=== PATIENT | female | born 1990 | race Caucasian/White ===

== ENCOUNTER → 2019-06-11 | Outpatient (CLI) | payer OTHER ==
[2019-06-11 17:13] LABS: Rheumatoid Factor 7 IU/mL (0-15)
[2019-06-11 17:23] LABS: Vitamin D 25 Hydroxy 15.8 ng/mL (30.0-100.0)
[2019-06-11 17:33] LABS: African American GFR (CKD) 115.5 (60.0-200.0); Albumin 4.8 g/dL (3.80-4.90); Albumin/Globulin Ratio 2.18 (1.60-3.17); Anion Gap 10.6 mmol/L (4.00-12.00); Calcium 9.6 mg/dL (8.7-10.3); Carbon Dioxide 24.4 mmol/L (21.6-31.8); Chol/HDL Ratio 2.58; Globulin 2.2 g/dL (1.6-3.3); LDL Cholesterol,Calculated 99.8 mg/dL (0.0-131.0); Non-African American GFR(CKD) 99.6 (60.0-200.0); Potassium 4.2 mmol/L (3.5-5.5); Total Bilirubin 0.6 mg/dL (0.2-1.2); VLDL Calculation 17.2 mg/dL (5.00-40.00)
[2019-06-11 18:54] LABS: Anti-Smith Ab Interp NEGATIVE (NEGATIVE)
[2019-06-11 18:55] LABS: DNA Double-Stranded NEGATIVE (NEGATIVE)
[2019-06-12 14:15] LABS: Complement C3 85.6 mg/dL (80.0-207.0)
== END | disposition home or self-care (01) ==
LOC: LABWHC1 10:26
PROVIDERS: ATTEND Nurse Practitioner Adult Health
DX: O03.9 Complete or unspecified spontaneous abortion without complication (principal); F41.9 Anxiety disorder, unspecified; R76.8 Other specified abnormal immunological findings in serum; R53.83 Other fatigue
CPT/HCPCS: 36415; 80053; 80061; 82306; 82542; 82550; 82672; 84144; 86038; 86160; 86225; 86235; 86431

== ENCOUNTER → 2019-10-27 | Outpatient (CLI) | payer OTHER | END | disposition home or self-care (01) | LOC: LABWHC1 10:30 | PROVIDERS: ATTEND Nurse Practitioner Adult Health | DX: O03.9 Complete or unspecified spontaneous abortion without complication (principal) | CPT/HCPCS: 36415; 84702 ==

== ENCOUNTER → 2019-10-29 | Outpatient (CLI) | payer OTHER ==
--- NOTE | 2019-10-29 15:39 | US ---
EXAMINATION TYPE: Transabdominal DATE OF EXAM: 10/29/2019 3:17 PM COMPARISON: NONE CLINICAL HISTORY: Z32.01 Encounter for test, result positi. Pt states confirm dates, has no other complaints at this time EXAM PERFORMED: Transvaginal (TV) and Transabdominal (TA) EXAM MEASUREMENTS: GESTATIONAL AGE / DATING Physician Established: (6 weeks/0 days) EDC: 06/23/2020 Dates by LMP: (6 weeks/0 days) EDC: 06/23/2020 Dates by First Scan: No prior Dates by Current Scan for: (6 weeks/0 days) EDC: 06/23/2020 MATERNAL ANATOMY Uterus: 7.5 x 4.5 x 5.5 cm Right Ovary: 4.4 x 2.2 x 4.2 Left Ovary: 2.9 x 1.8 x 2.6 Post CDS / Adnexa: wnl Presence of free fluid: No Presence of corpus luteal cyst: Right Ovary= 2.2 x 2.0 x 1.9 cm Presence of subchorionic bleed: No GESTATION / SURVEY CRL: 0.3 cm (5 weeks/6 days) MSD: 1.7 cm (6 weeks/0 days) Yolk Sac (normal less than 6mm): 2mm Heart Rate: 110 bpm IUP: Live IUP Date of LMP: 09/17/2020 IMPRESSION: Single live intrauterine with a sonographic age of 6 weeks and 0 days and estim ated date of delivery of 06/23/2020, concordant with menstrual age.
== END | disposition home or self-care (01) ==
LOC: RADUSWWP 14:56
PROVIDERS: ATTEND Nurse Practitioner Adult Health
DX: Z32.01 Encounter for pregnancy test, result positive (principal); Z3A.01 Less than 8 weeks gestation of pregnancy; Z88.8 Allergy status to other drugs, medicaments and biological substances
CPT/HCPCS: 76801; 76817

== ENCOUNTER 2020-03-14 14:37 | Observation (INO) | payer OTHER ==
[2020-03-14] MEDS ORDERED: LACTATED RINGERS 1,000 ML IV SCH (15:00)
[2020-03-14 15:16] LABS: Basophils % (A) 0 %; Eosinophils # (A) 0.1 k/uL (0-0.7); Eosinophils % (A) 1 %; HGB 12.5 gm/dL (11.4-16.0); Lymphocytes # (A) 1.4 k/uL (1.0-4.8); Lymphocytes % (A) 9 %; MCH 30.6 pg (25.0-35.0); MCHC 34.8 g/dL (31.0-37.0); MCV 88.1 fL (80.0-100.0); Mean Platelet Volume 8.3; Monocytes # (A) 0.9 k/uL (0-1.0); Monocytes % (A) 6 %; Neutrophils # (A) 12.2 k/uL (1.3-7.7); Neutrophils % (A) 82 %; Platelet Count 208 k/uL (150-450); RBC 4.09 m/uL (3.80-5.40); RDW 12.9 % (11.5-15.5); WBC 14.9 k/uL (3.8-10.6)
--- NOTE | 2020-03-14 15:29 | P.HPOB ---
History of Present Illness H&P Date: 03/14/20 Chief Complaint: 25-6/7 weeks, presumed right pyelonephritis The patient is a 29-year-old 5 para 0040 admitted at 25-4/7 weeks as established by good dating parameters. She is admitted with presumptive right pyelonephritis. She presented to the office yesterday at which time she complained of right flank pain which was at least moderate in nature. She denied any history of fever but generally did not feel well. Urinalysis was consistent with urinary tract infection. Temperature was normal in the office. CBC was drawn but did not reported until today at which time it was found to be 16.2. As she continued to have significant and perhaps worsening symptoms, she was admitted to the hospital directly for presumptive right pyelonephritis for IV antibiotic therapy. Her has otherwise been uncomplicated though she is a transfer of care having first seen me in the office at 24 weeks of gestation. Obstetrical history: 5 para 0040 with 3 early miscarriages not requiring D&C and one early elective interruption of . Current statistics are listed in history present illness. EDC of 06/23/2020 was established by ultrasound at her previous practice. labs are not currently available on the chart. CBC done here demonstrates a white blood cell count of just above 14.0. Gynecologic history: Unremarkable with no history of any infections to include STDs. Review of Systems Review of systems is confined to history of present illness. Past Medical History Smoking Status: Never smoker Medications and Allergies Home Medications Medication Instructions Recorded Confirmed Type Cholecalciferol (Vitamin D3) 50 mcg PO HS 03/14/20 03/14/20 History [Vitamin D3] Pnv No.95/Ferrous Fum/Folic AC 1 each PO HS 03/14/20 03/14/20 History [ Multivitamin Tablet] Allergies Allergy/AdvReac Type Severity Reaction Status Date / Time escitalopram [From Lexapro] Allergy Rapid Verified 03/14/20 14:48 Heart Rate sertraline [From Zoloft] Allergy Rapid Verified 03/14/20 14:48 Heart Rate Exam Vital Signs Temp Pulse Resp BP Pulse Ox 03/14/20 14:46 98.8 F 95 16 135/83 96 Intake and Output 03/14/20 03/14/20 03/14/20 06:59 14:59 22:59 Other: Weight 75.75 kg In general, this is a well-developed, well-nourished white female in no acute distress. Her heart has a regular rhythm and rate without murmur. Her lungs are clear to auscultation bilaterally in all paz. Her abdomen is gravid, fundal height appropriate for gestational age, nondistended, is soft, nontender, and without any palpable masses aside from the uterine fundus. She does demonstrate moderate to reasonably significant right flank pain. Her extremities are without any cyanosis, clubbing, or edema and are nontender to palpation bilaterally. Digital cervical examination is deferred. Results Result Diagrams: 03/14/20 15:00 Abnormal Lab Results - Last 24 Hours (Table) 03/14/20 Range/Units 15:00 WBC 14.9 H (3.8-10.6) k/uL Neutrophils # 12.2 H (1.3-7.7) k/uL Assessment and Plan (1) Pyelonephritis affecting Current Visit: Yes Status: Acute Code(s): O23.00 - INFECTIONS OF KIDNEY IN , UNSPECIFIED TRIMESTER SNOMED Code(s): 63114170 (2) 25 to 26 weeks gestation of Current Visit: Yes Status: Acute Code(s): SPT8320 - SNOMED Code(s): 744981940 Plan: The patient has been admitted for intravenous antibiotics. Rocephin 1 g intravenously every 12 hours will be given until significant clinical improvement and 24-48 hours of remaining afebrile. She otherwise will have regular diet as well as activity as tolerated. I have encouraged her to get up and walk on a regular basis. Heart tones will be rechecked with a Doppler with each shift. CBC will be repeated in the morning. IV fluids will be continued at to keep open. She understands the plan as it has been outlined and is in agreement. Urine culture was initiated in the office yesterday at the time of her office appointment. Once clinical improvement occurs, she will likely be discharged home on continued antibiotics for 7 days thereafter. The clinical picture is not that of nephrolithiasis at this time.
[2020-03-15 07:45] VITALS: BP 119/64; PULSE 89; RESP 17; TEMP 98.1
[2020-03-15 07:58] LABS: Basophils # (A) 0.1 k/uL (0-0.2); Basophils % (A) 0 %; Eosinophils # (A) 0.1 k/uL (0-0.7); Eosinophils % (A) 1 %; HCT 35.7 % (34.0-46.0); HGB 12.2 gm/dL (11.4-16.0); Lymphocytes # (A) 1.7 k/uL (1.0-4.8); Lymphocytes % (A) 13 %; MCH 30.7 pg (25.0-35.0); MCHC 34.3 g/dL (31.0-37.0); MCV 89.5 fL (80.0-100.0); Mean Platelet Volume 8.4; Monocytes # (A) 0.8 k/uL (0-1.0); Monocytes % (A) 6 %; Neutrophils # (A) 10.1 k/uL (1.3-7.7); Neutrophils % (A) 77 %; Platelet Count 170 k/uL (150-450); RBC 3.99 m/uL (3.80-5.40); RDW 13.1 % (11.5-15.5)
[2020-03-15] MEDS ORDERED: PRENATAL VIT-IRON-FOLIC ACID 1 EACH CAP PO SCH (09:00)
--- NOTE | 2020-03-15 09:00 | P.DS ---
Providers Date of admission: 03/14/20 14:37 Expected date of discharge: 03/15/20 Attending physician: Betito Farias Primary care physician: Stated None - Discharge Diagnosis(es) (1) Pyelonephritis affecting Current Visit: Yes Status: Acute (2) 25 to 26 weeks gestation of Current Visit: Yes Status: Acute Hospital Course: The patient is a 29-year-old 5 para 0040 admitted at 25+ weeks by good dating parameters. She is admitted with presumptive right pyelonephritis with significant right flank pain and an elevated white count as well as a very conspicuous urinalysis. Urine cultures pending at this time. She has been afebrile of both prior to admission and during her admission. Initial white count drawn in the office was 16.2 and has now decreased reasonably into the area of approximately 13. She has had significant clinical improvement over last 24 hours with Rocephin 1 g every 12 hours given intravenously. She is otherwise tolerating all activities of daily living. Her examination demonstrates almost no flank tenderness at this time whereas yesterday she had significant flank tenderness. She was deemed stable for discharge on hospital day #2 was discharged home to follow-up in the office in 1-2 weeks as previously scheduled. Discharge instructions included calling for any significantly increased fever, pain, fever, or anything also concerned her. status is been stable throughout. Discharge medications included only maej-fzp-[id number] analgesic pain medications as well as continued vitamins as she is . She additionally was provided with a prescription for Macrobid, 1 by mouth twice a day 7 days, #14 dispensed. Procedures: #1. IV antibiotics Patient Condition at Discharge: Stable Plan - Discharge Summary Discharge Rx Participant: No New Discharge Prescriptions: No Action Pnv No.95/Ferrous Fum/Folic AC [ Multivitamin Tablet] 1 each PO HS Cholecalciferol (Vitamin D3) [Vitamin D3] 50 mcg PO HS Discharge Medication List Cholecalciferol (Vitamin D3) [Vitamin D3] 50 mcg PO HS 03/14/20 [History] Pnv No.95/Ferrous Fum/Folic AC [ Multivitamin Tablet] 1 each PO HS 03/14/20 [History] Follow up Appointment(s)/Referral(s): Betito Farias MD [STAFF PHYSICIAN] - 2 Weeks Discharge Disposition: HOME SELF-CARE
== END 2020-03-15 15:53 | disposition home or self-care (01) ==
LOC: 4FBP 14:37
PROVIDERS: ADMIT Obstetrics & Gynecology; ATTEND Obstetrics & Gynecology
DX: O23.02 Infections of kidney in pregnancy, second trimester (principal); Z3A.25 25 weeks gestation of pregnancy; Z88.8 Allergy status to other drugs, medicaments and biological substances
CPT/HCPCS: 96365; 96366; 85025 ×2; G0378 ×2; G0379; J0696 ×2; S0197

== ENCOUNTER 2020-06-09 09:54 | Outpatient (CLI) | payer OTHER ==
[2020-06-09 10:34] VITALS: RESP 16; TEMP 97.2
[2020-06-09 10:59] LABS: Basophils # (A) 0.1 k/uL (0-0.2); Basophils % (A) 1 %; Eosinophils # (A) 0.1 k/uL (0-0.7); Eosinophils % (A) 1 %; HCT 37.9 % (34.0-46.0); HGB 12.8 gm/dL (11.4-16.0); Lymphocytes # (A) 1.7 k/uL (1.0-4.8); Lymphocytes % (A) 18 %; MCH 29.7 pg (25.0-35.0); MCHC 33.7 g/dL (31.0-37.0); Mean Platelet Volume 9.3; Monocytes # (A) 0.5 k/uL (0-1.0); Monocytes % (A) 6 %; Neutrophils # (A) 7.2 k/uL (1.3-7.7); Neutrophils % (A) 73 %; Platelet Count 166 k/uL (150-450); RBC 4.31 m/uL (3.80-5.40); RDW 13.6 % (11.5-15.5); WBC 9.8 k/uL (3.8-10.6)
[2020-06-09 11:03] LABS: ALT 23 U/L (4-34); AST 30 U/L (14-36); African American GFR (CKD) >90 (>60 ml/min/1.73 sqM); Blood Urea Nitrogen 10 mg/dL (7-17); LDH 411 U/L (313-618); Non-African American GFR(CKD) >90 (>60 ml/min/1.73 sqM); Uric Acid 5.3 mg/dL (3.7-7.4)
[2020-06-09 11:04] LABS: Appearance,Urine Clear (Clear); Bacteria,Urine Occasional /hpf; Bilirubin,Urine Negative (Negative); Blood,Urine Negative (Negative); Color,Urine Light Yellow; Glucose,Urine (UA) Negative (Negative); Ketones,Urine Negative (Negative); Leukocyte Esterase,Urine Large (Negative); Nitrite,Urine Negative (Negative); PH, Urine 6.5 (5.0-8.0); Protein,Urine Negative (Negative); RBC,Urine 1 /hpf (0-5); Specific Gravity,Urine 1.008 (1.001-1.035); Squamous Epithelial Cell,Urine 1 /hpf (0-4); Urobilinogen,Urine <2.0 mg/dL (<2.0); WBC,Urine 113 /hpf (0-5)
[2020-06-09 11:05] LABS: Protein/Creatinine Ratio,Urine 0.25
[2020-06-09 11:56] VITALS: BP 124/74; PULSE 87
--- NOTE | 2020-06-15 19:17 | P.MSEPDOC ---
Presenting Problems - Arrival Data Date of Arrival on Unit: 06/09/20 Time of Arrival on Unit: 09:54 Mode of Transport: Ambulatory - Complaint OB-Reason for Admission/Chief Complaint: Other Comment: pt here with c/o bloody nose an hour ago that lasted 20 minutes, pt states she. has had elevated blood pressures for the last 2 weeks, pt denies blurred. vision/epigastric pain, reports headache that she has had on and off for last 2 weeks. that has not increased in pain, pt reports + fm, denies lof/vb, reflexes +2 Medical History - Information : 5 Para: 0 Term: 0 : 0 Abortions: Spontaneous or Elective: 4 Number of Living Children: 0 - Gestational Age Gestational Age by NATHALY (wks/days): 38 Weeks and 0 Days - History Complications: Other Comment: pt reports elevated blood pressures in last few weeks of Review of Systems - Review of Systems Constitutional: No problems Breast: No problems ENT: No problems Cardiovascular: No problems Respiratory: No problems Gastrointestinal: No problems Genitourinary: No problems Musculoskeletal: No problems Neurological: No problems Skin: No problems Vital Signs - Temperature Temperature: 97.2 F Temperature Source: Temporal Artery Scan - Pulse Right Brachial Pulse Rate: 87 Pulse Assessment Method: Automatic Cuff - Respirations Respiratory Rate: 16 Oxygen Delivery Method: Room Air - Blood Pressure Right Arm Blood Pressure: 124/74 Blood Pressure Mean: 90 Blood Pressure Source: Automatic Cuff Medical Screen Scoring (Pre) - Cervical Exam Dilation: Exam Deferred Effacement: Exam Deferred Membranes: Intact - Uterine Contractions Frequency: N/A Duration: N/A Intensity: N/A - Maternal Vital Signs Maternal Temperature: N/A Maternal Blood Pressure: N/A Signs of Preeclampsia: N/A Maternal Respirations: N/A - Maternal Trauma Maternal Trauma: N/A - Assessment - Baby A Baseline FHR: 145 - Total Score - Baby A Total Score - Baby A: 0 - Total Score - Baby B Total Score - Baby B: 0 - Total Score - Baby C Total Score - Baby C: 0 - Level of Risk - Baby A Level of Risk - Baby A: Low (0-5) - Level of Risk - Baby B Level of Risk - Baby B: Low (0-5) - Level of Risk - Baby C Level of Risk - Baby C: Low (0-5) Physician Notification (Pre) - Physician Notified Spoke With: marine. New Order Received: Yes - Notification Comment Comment: disch home. to samira wang appt. parker wahl s/sx with pt. Medical Screen Scoring (Post) - Cervical Exam Dilation: Exam Deferred - Uterine Contractions Frequency: N/A Duration: N/A Intensity: N/A - Maternal Vital Signs Maternal Temperature: N/A Maternal Blood Pressure: N/A Signs of Preeclampsia: N/A Maternal Respirations: N/A - Pain Assessment Pain Intensity: 0 - Maternal Trauma Maternal Trauma: N/A - Assessment - Baby A Heart Rate: 145 Heart Rate - NICHD Category: Category I (Normal) = 0 NST: Reactive Position: N/A Station: N/A - Total Score Total Score - Baby A: 0 Total Score - Baby B: 0 Total Score - Baby C: 0 - Post Treatment Level of Risk Post Treatment Level of Risk - Baby A: Low (0-5) Post Treatment Level of Risk - Baby B: Low (0-5) Post Treatment Level of Risk - Baby C: Low (0-5) Physician Notification (Post) - Physician Notified Physician Notified Date: 06/09/20 Physician Notified Time: 11:05 Spoke With: marine New Order Received: Yes - Notification Comment Comment: disch home Disposition - Disposition OB Disposition: Discharge to home Discharge Date: 06/09/20 Discharge Time: 11:10 I agree with the RN Medical Screening Exam: Yes Risk & Benefit of care provided described in d/c instruction: Yes Diagnosis: RELATED CONDITIONS, UNSPECIFIED, THIRD TRIMESTER
== END 2020-06-09 11:10 | disposition home or self-care (01) ==
LOC: FBPOP 09:54
PROVIDERS: ATTEND Obstetrics & Gynecology
DX: O26.93 Pregnancy related conditions, unspecified, third trimester (principal); Z3A.38 38 weeks gestation of pregnancy
CPT/HCPCS: 59025; 81001; 82565; 82570; 83615; 84156; 84450; 84460; 84520; 84550; 85025; 99215

== ENCOUNTER 2020-06-10 22:20 | Inpatient (IN) | payer OTHER ==
[2020-06-10] MEDS ORDERED: METHYLERGONOVINE 0.2 MG/ML 1 ML AMP IM PRN (23:01)
[2020-06-10] MEDS ORDERED: TERBUTALINE 1 MG/ML VIAL SQ PRN (23:01)
[2020-06-10] MEDS ORDERED: CARBOPROST TROMETHAMINE 250 MCG/ML 1 ML AMP IM PRN (23:01)
[2020-06-10] MEDS ORDERED: OXYTOCIN 10 UNIT/ML 1 ML VIAL IM PRN (23:01)
[2020-06-10] MEDS ORDERED: LIDOCAINE 0.5% (PF) 5 MG/ML (50 ML SDV) SQ PRN (23:01)
[2020-06-10 23:21] LABS: Basophils % (A) 0 %; Eosinophils # (A) 0.3 k/uL (0-0.7); Eosinophils % (A) 2 %; HCT 38.3 % (34.0-46.0); HGB 12.7 gm/dL (11.4-16.0); Lymphocytes # (A) 2.9 k/uL (1.0-4.8); Lymphocytes % (A) 21 %; MCH 29.1 pg (25.0-35.0); MCHC 33.1 g/dL (31.0-37.0); Mean Platelet Volume 9.7; Monocytes # (A) 0.7 k/uL (0-1.0); Monocytes % (A) 6 %; Neutrophils # (A) 9.4 k/uL (1.3-7.7); Neutrophils % (A) 70 %; Platelet Count 166 k/uL (150-450); RBC 4.36 m/uL (3.80-5.40); RDW 13.7 % (11.5-15.5); WBC 13.5 k/uL (3.8-10.6)
[2020-06-10 23:28] LABS: Uric Acid 4.4 mg/dL (3.7-7.4)
[2020-06-11 00:38] VITALS: RESP 16
[2020-06-11] MEDS: LACTATED RINGERS 1,000 ML IV SCH ×5 (00:56→22:13)
[2020-06-11] MEDS ORDERED: OXYTOCIN 30 UNITS/500 ML NS 30 UNIT in SALINE 1 500ML.BAG IV SCH (06:00)
--- NOTE | 2020-06-11 07:59 | P.HPOB ---
History of Present Illness H&P Date: 06/11/20 Chief Complaint: My water broke at 10:00 last night This is a 29-year-old white female 5 para 0040 EDC 06/23/2020 at 38-2/7 weeks' gestation. Patient presented with a history of her water breaking last night, clear fluid, at approximately 10 PM. She had no uterine contractions to follow. Fetus is been active throughout the . She denies headache, visual changes, or right upper quadrant pain. Past medical history is significant for hypertension treated with meds in the past by a physician in [place]. Migraine headaches, HSV, and anxiety. Past surgical history is significant for voluntary termination of 2018. Current medications omeprazole 40 mg capsules before meals, vitamin daily, vitamin D3 oral capsules. ALLERGIES include Lexapro and Zoloft to which reports worsened anxiety, and seasonal ALLERGIES. Family history significant for hypertension, migraine headaches, diabetes, and liver cancer. Past obstetric history is significant for 3 missed abortions, no D&C's, with a voluntary termination of 2018. history significant for blood type B positive, rubella status immune. Hepatitis B surface antigen, HIV testing, most recent urine culture, VDRL testing, gonorrhea and chlamydia cultures all negative. One-hour Glucola 79. Group B strep cultures negative. On exam patient is 5 foot 1 inch, 180 pounds, blood pressure 148/88 on admission, repeat 112/62, patient is afebrile. The general physical exam is within normal limits. She denies any active HSV lesions. Cervix is 1 cm dilated, 3 cm long, -3 station, vertex presentation, 4 bag palpated. Artificial amniorrhexis of 4 bag reveals clear fluid. heart rate is consistent with reactive NST. Impression: 38-2/7 weeks intrauterine , history of chronic hypertension on no meds currently, history of anxiety. History of HSV, no lesions or prodrome presently. Spontaneous amniorrhexis last night. Plan: Oxytocin augmentation per hospital protocol. Close maternal and surveillance. Analgesic options reviewed with the patient. I will begin antibiotics, penicillin G per hospital protocol. Anticipate normal spontaneous vaginal delivery. Review of Systems Constitutional: Reports as per HPI Past Medical History Past Medical History: Skin Disorder Additional Past Medical History / Comment(s): Eczema History of Any Multi-Drug Resistant Organisms: None Reported Past Surgical History: No Surgical Hx Reported Past Anesthesia/Blood Transfusion Reactions: No Reported Reaction Past Psychological History: Anxiety, Depression Smoking Status: Never smoker Past Alcohol Use History: None Reported Past Drug Use History: None Reported - Past Family History Father Family Medical History: No Reported History Medications and Allergies Home Medications Medication Instructions Recorded Confirmed Type Cholecalciferol (Vitamin D3) 50 mcg PO HS 03/14/20 06/10/20 History [Vitamin D3] Pnv No.95/Ferrous Fum/Folic AC 1 each PO HS 03/14/20 06/10/20 History [ Multivitamin Tablet] Allergies Allergy/AdvReac Type Severity Reaction Status Date / Time escitalopram [From Lexapro] Allergy Rapid Verified 06/10/20 22:23 Heart Rate sertraline [From Zoloft] Allergy Rapid Verified 06/10/20 22:23 Heart Rate Exam Vital Signs Temp Pulse Resp BP 06/10/20 22:40 98.2 F 97 16 145/88 Intake and Output 06/10/20 06/11/20 06/11/20 22:59 06:59 14:59 Other: # Voids 2 Weight 81.647 kg See dictation please Results Result Diagrams: 06/10/20 23:00 Abnormal Lab Results - Last 24 Hours (Table) 06/10/20 Range/Units 23:00 WBC 13.5 H (3.8-10.6) k/uL Neutrophils # 9.4 H (1.3-7.7) k/uL Assessment and Plan Assessment: 38-2/7 weeks intrauterine , spontaneous amniorrhexis for 12 hours. History of HSV with no lesions or prodrome. Plan: Oxytocin per hospital protocol. We'll start antibiotics prophylactically. Close maternal and surveillance. Anticipating normal spontaneous vaginal delivery. Time with Patient: Less than 30
[2020-06-11] MEDS ORDERED: PENICILLIN G POTASSIUM 5,000,000 UNIT in DEXTROSE 5% IN WATER 100 ML IVPB ONE ×2 (10:00)
[2020-06-11] MEDS ORDERED: BUTORPHANOL 1 MG/ML 1 ML VIAL IV PRN (11:12)
[2020-06-11] MEDS: PENICILLIN G POTASSIUM 2,500,000 UNIT in DEXTROSE 5% IN WATER 100 ML IVPB SCH ×4 (13:30→18:38)
[2020-06-11] MEDS ORDERED: fentaNYL (PF) 50 MCG/ML 5 ML AMP ONE (15:25)
[2020-06-11] MEDS ORDERED: ROPIVACAINE 5MG/ML 20ML VIAL ONE (15:25)
[2020-06-11] MEDS ORDERED: SODIUM CHLORIDE 0.9% 100 ML BAG ONE (15:25)
[2020-06-11] MEDS ORDERED: ROPIVACAINE 100 MG, fentaNYL (PF) 200 MCG in SODIUM CHLORIDE 0.9% 76 ML EPIDURAL ONE (15:42)
[2020-06-11] MEDS ORDERED: CITRIC ACID-SODIUM CITRATE 15 ML CUP PO ONE (18:25)
[2020-06-11] MEDS ORDERED: ONDANSETRON 4 MG/2 ML VIAL ONE (18:40)
[2020-06-11] MEDS ORDERED: MORPHINE SULFATE (PF) 0.3 MG/0.3 ML SYR ONE (18:40)
[2020-06-11] MEDS ORDERED: OXYTOCIN 10 UNIT/ML 1 ML VIAL ONE (18:40)
[2020-06-11] MEDS ORDERED: fentaNYL (PF) 50 MCG/ML 2 ML AMP ONE (18:40)
[2020-06-11] MEDS ORDERED: LIDOCAINE 2% SYG (PF) 100 MG/5 ML ONE (18:40)
[2020-06-11] MEDS ORDERED: MORPHINE SULFATE 2 MG/ML SYRINGE IVP PRN (19:04)
[2020-06-11] MEDS ORDERED: ONDANSETRON 4 MG/2 ML VIAL IVP PRN ×2 (19:04→19:33)
[2020-06-11] MEDS ORDERED: diphenhydrAMINE 50 MG/ML 1 ML VIAL IVP PRN ×3 (19:04→19:33)
[2020-06-11] MEDS ORDERED: NALOXONE 0.4 MG/ML 1 ML VIAL IV PRN ×2 (19:04→19:33)
--- NOTE | 2020-06-11 19:32 | P.OP ---
Date of Procedure: 06/11/20 Preoperative Diagnosis: Arrest of dilatation at 3-4 cm, arrest of descent at -3 station. 38-2/7 weeks intrauterine . Postoperative Diagnosis: Same, left occiput transverse position, nuchal cord 1. Procedure(s) Performed: Primary low transverse section Anesthesia: epidural Surgeon: Ellie Dolan Sales Development Director #1: Sha Butcher Estimated Blood Loss (ml): 500 IV fluids (ml): 800 Urine output (ml): 200 Pathology: other (Placenta) Condition: stable Disposition: PACU Operative Findings: Liveborn male , nuchal cord 1, left occiput transverse position, 7 lbs. 13 oz., 3550 g. Normal-appearing tubes and ovaries bilaterally. Description of Procedure: Patient is brought to the operating suite where the previously placed epidural was topped off. 2 g of Ancef are given. The appropriate timeout is performed to assure proper patient and procedural identification. The risks and benefits of the procedure have been discussed with the patient and her in detail. The abdomen is prepped and draped in usual sterile fashion. Perry catheter to direct drainage. The analgesia is checked and noted to be adequate. A low transverse skin incision is made in this is carried down to the subcutaneous tissue which is possibly 2 cm deep. Fascia is isolated, scored, extended bilaterally with curved Huynh scissors. Peritoneum is next identified and incised, there is no bowel or bladder involvement. The bladder blade is placed over the dome of the bladder, Metzenbaum scissors are used to take the bladder down from the lower uterine segment. At all times the bladder is Well from the operative field to avoid bladder and/or ureteral injury. A low transverse uterine incision is made with a scalpel and extended bluntly. The 's head is delivered in the left occiput transverse position. There is a fair amount of Noted. There is a nuchal cord 1 that is reduced. Patient is officially delivered of a liveborn male at 1858 hours. Umbilical cord is doubly clamped and ligated, he is handed to waiting nurses for evaluation where scores of 8 and 9 at one and 5 minutes respectively are given. The placenta is delivered manually, it is inspected and noted to be intact with trivascular cord at 1859 hours. Uterus is then externalized and massaged. The uterus is swept clean with a sterile sponge to avoid any retained products of co nception. The edges of the incision are grasped with Whittington clamps. The uterus is closed in a two-step fashion, first layer running locking with 0 Vicryl, second layer imbricated with 0 Vicryl. Hemostasis is excellent. The abdomen is suctioned with suction on guard and the uterus is gently placed back into the abdominal cavity. Bilateral gutters are inspected and cleaned. Peritoneum was allowed to close by secondary intention. Fascia is closed in a running locking stitch of 0 Vicryl with over ligation in the midline. Subcutaneous tissue is irrigated, noted to be clean and dry. It is reapproximated with 3-0 Vicryl in a running fashion. 4-0 undyed Vicryl issues for final skin closure. Uterus is then massaged for a small amount of blood. All sponge needle and enhancement counts are correct. Perry is noted to be draining clear urine. Patient is brought back to recovery room in excellent condition with a blood pressure 110/65, pulse 100. Patient and her family are allowed to begin the bonding experience in the LDR. They are requesting circumcision further infant son.
[2020-06-11] MEDS ORDERED: SIMETHICONE 80 MG CHEWABLE PO PRN (19:33)
[2020-06-11] MEDS ORDERED: METOCLOPRAMIDE 5 MG/ML 2 ML VIAL IVP PRN (19:33)
[2020-06-11] MEDS ORDERED: ACETAMINOPHEN TAB 325 MG TAB PO PRN (19:33)
[2020-06-11] MEDS ORDERED: diphenhydrAMINE 50 MG CAP PO PRN (19:33)
[2020-06-11] MEDS ORDERED: ZOLPIDEM 5 MG TAB PO PRN (19:33)
[2020-06-11] MEDS ORDERED: diphenhydrAMINE 25 MG CAP PO PRN (19:33)
[2020-06-11] MEDS ORDERED: LACTATED RINGERS 1,000 ML IV SCH (19:45)
[2020-06-11] MEDS: SENNOSIDES-DOCUSATE SODIUM 1 EACH TAB PO SCH (19:59)
[2020-06-11] MEDS: KETOROLAC 15 MG/ML 1 ML VIAL IVP PRN (20:08)
[2020-06-12] MEDS: KETOROLAC 15 MG/ML 1 ML VIAL IVP PRN ×2 (04:09→10:14)
[2020-06-12 05:06] LABS: Basophils % (A) 0 %; Eosinophils # (A) 0.2 k/uL (0-0.7); Eosinophils % (A) 1 %; HCT 34.5 % (34.0-46.0); HGB 11.4 gm/dL (11.4-16.0); Lymphocytes % (A) 14 %; MCH 29.4 pg (25.0-35.0); MCHC 33.2 g/dL (31.0-37.0); MCV 88.6 fL (80.0-100.0); Mean Platelet Volume 8.4; Monocytes # (A) 0.6 k/uL (0-1.0); Monocytes % (A) 4 %; Neutrophils # (A) 10.9 k/uL (1.3-7.7); Neutrophils % (A) 79 %; Platelet Count 141 k/uL (150-450); RDW 13.7 % (11.5-15.5); WBC 13.8 k/uL (3.8-10.6)
[2020-06-12] MEDS: LACTATED RINGERS 1,000 ML IV SCH (05:56)
--- NOTE | 2020-06-12 06:08 | P.PN ---
Progress Note - Text Date: 06/12/2020 Time: 06 The patient is status post section Vital signs stable VAS:0-10 Patient has no complaints of pain. The patient incurred some minimal itching yesterday, this itching is now subsiding. The patient also had some nausea which has now subsided. Pain meds to be managed by service.
[2020-06-12] MEDS: SENNOSIDES-DOCUSATE SODIUM 1 EACH TAB PO SCH ×2 (08:18→20:49)
--- NOTE | 2020-06-12 11:09 | P.PNOBGPC ---
Subjective - Subjective Interval history: Nausea has resolved. Patient reports: Reports appetite normal, Reports voiding normally, Reports pain well controlled, Reports ambulating normally [place]: doing well Objective - Vital Signs Latest vital signs: Vital Signs Temp Pulse Resp BP Pulse Ox 06/12/20 10:00 16 98 06/12/20 08:00 97.9 F 69 16 122/71 99 06/12/20 06:00 16 06/12/20 04:00 98.1 F 86 16 123/77 97 06/12/20 02:00 16 06/12/20 00:02 99 06/11/20 23:59 98.1 F 74 16 133/77 99 06/11/20 22:00 16 98 06/11/20 21:27 97.2 F L 90 16 133/74 97 06/11/20 20:57 86 16 135/75 99 06/11/20 20:27 90 16 140/73 98 06/11/20 20:18 89 16 141/73 100 06/11/20 20:04 16 99 06/11/20 19:57 93 16 141/73 100 06/11/20 19:42 96 16 110/59 99 06/11/20 19:27 97.7 F 97 16 120/67 97 06/11/20 19:26 16 97 Intake and Output 06/11/20 06/12/20 06/12/20 22:59 06:59 14:59 Intake Total 500 Output Total 1100 1050 900 Balance -1100 -1050 -400 Intake: IV 500 Lactated Ringers 1,000 ml 500 @ 125 mls/hr IV .Q8H [facility] Rx#:[id number] Output: Urine 600 1050 900 Uretheral (Perry) 450 Estimated Blood Loss 500 Other: # [place] 3 - Exam Extremities: Present: normal Abdomen: Present: normal appearance, soft. Absent: distention, tenderness Incision: Present: normal, dry, intact Uterus: Present: normal, firm (Uterine fundus is tonic and appropriate early tender around the umbilicus.) - Labs Labs: Abnormal Lab Results - Last 24 Hours (Table) 06/12/20 Range/Units 04:54 WBC 13.8 H (3.8-10.6) k/uL Plt Count 141 L (150-450) k/uL Neutrophils # 10.9 H (1.3-7.7) k/uL Assessment and Plan (1) Status post section Current Visit: Yes Status: Acute Code(s): Z98.891 - HISTORY OF UTERINE SCAR FROM PREVIOUS SURGERY SNOMED Code(s): 582464195 Plan: Continue routine postoperative care. I strongly encouraged the patient amulet in the hallways routinely. I will advance her diet to regular at this time. Anticipate possible discharge home tomorrow pending no complications.
[2020-06-12] MEDS: IBUPROFEN 600 MG TAB PO PRN (17:36)
[2020-06-12] MEDS: HYDROcodone/APAP 5-325MG 1 EACH TAB PO PRN (20:49)
[2020-06-13] MEDS: HYDROcodone/APAP 5-325MG 1 EACH TAB PO PRN (02:01)
[2020-06-13] MEDS: LACTATED RINGERS 1,000 ML IV SCH (03:05)
[2020-06-13] MEDS: SENNOSIDES-DOCUSATE SODIUM 1 EACH TAB PO SCH (07:53)
[2020-06-13] MEDS: IBUPROFEN 600 MG TAB PO PRN (07:53)
[2020-06-13 07:57] VITALS: BP 120/81; PULSE 70; TEMP 98
--- NOTE | 2020-06-13 08:45 | P.DS ---
Providers Date of admission: 06/10/20 22:35 Expected date of discharge: 06/13/20 Attending physician: Betito Farias Primary care physician: Stated None - Discharge Diagnosis(es) (1) Status post section Current Visit: Yes Status: Acute Hospital Course: The patient is a 29-year-old 5 para 0040 admitted at 38-2/7 weeks by good dating parameters. She is admitted with spontaneous rupture of membranes for clear fluid. She otherwise had no complications. She ultimately had Pitocin augmentation started but made no significant progress and ultimately was found with arrest of dilation and descent and was taken the operating room where she was delivered of a viable 7 lbs. 13 oz. baby boy with Apgars of 8 at 1 minute and 9 at 5 minutes. Her postoperative and courses were unremarkable with vital signs being stable and her temperature was afebrile throughout. She was deemed stable for discharge on and postoperative day #2 and was discharged home to follow-up in the office in 2 weeks for an incision check and 6 weeks routinely. Discharge instructions included calling for any significantly increased bleeding or foul-smelling lochia, significantly increased fever abdominal pain, perineal complaints, breast complaints, incisional complaints, or anything else that concerned her. She is additionally instructed to have nothing in the vagina for at least 6 weeks time to include intercourse and to abstain from any heavy lifting over the same period of time. She is lastly instructed to do no driving until off of all pain medications or 2 weeks' time, whichever came first. She understood her instructions and agrees to follow up as noted above. Discharge medications included ofee-jry-rglodix analgesic pain medications as well as continued vitamins as she has opted to breast-feed. She additionally was provided with a prescription for [place] 5/325 mg, 1-2 by mouth every 6 hours when necessary pain, #20 dispensed with no refills. Maternal blood type is B+ and rubella status is immune. Procedures: #1. Pitocin augmentation #2. Antibiotic prophylaxis #3. Epidural analgesia #4. Primary low-transverse section Patient Condition at Discharge: Stable Plan - Discharge Summary New Discharge Prescriptions: No Action Pnv No.95/Ferrous Fum/Folic AC [ Multivitamin Tablet] 1 each PO HS Cholecalciferol (Vitamin D3) [Vitamin D3] 50 mcg PO HS Discharge Medication List Cholecalciferol (Vitamin D3) [Vitamin D3] 50 mcg PO HS 03/14/20 [History] Pnv No.95/Ferrous Fum/Folic AC [ Multivitamin Tablet] 1 each PO HS 03/14/20 [History] Follow up Appointment(s)/Referral(s): Betito Farias MD [STAFF PHYSICIAN] - 2 Weeks Discharge Disposition: HOME SELF-CARE
== END 2020-06-13 14:55 | disposition home or self-care (01) | DRG 787 ==
LOC: FBPOP 22:20 → 4FBP 22:35
PROVIDERS: ADMIT Obstetrics & Gynecology; ATTEND Obstetrics & Gynecology
PROC: 3E033VJ Introduction of Other Hormone into Peripheral Vein, Percutaneous Approach (ICD-10-PCS; 2020-06-10)
PROC: 10D00Z1 Extraction of Products of Conception, Low, Open Approach (ICD-10-PCS; principal; 2020-06-11 18:45)
DX: O62.1 Secondary uterine inertia (principal); O99.354 Diseases of the nervous system complicating childbirth; Z3A.38 38 weeks gestation of pregnancy; Z37.0 Single live birth; O62.0 Primary inadequate contractions; O69.81X0 Labor and delivery complicated by cord around neck, without compression, not applicable or unspecified; O99.344 Other mental disorders complicating childbirth; J30.2 Other seasonal allergic rhinitis; F32.9 Major depressive disorder, single episode, unspecified; F41.9 Anxiety disorder, unspecified; G43.909 Migraine, unspecified, not intractable, without status migrainosus; I10 Essential (primary) hypertension; Z80.0 Family history of malignant neoplasm of digestive organs; Z82.49 Family history of ischemic heart disease and other diseases of the circulatory system; Z83.3 Family history of diabetes mellitus; R11.0 Nausea; Z88.8 Allergy status to other drugs, medicaments and biological substances
CPT/HCPCS: 59025; 84112; 84450; 84460; 84550; 85025; 86850; 86900; 86901; 88307; 99213

== ENCOUNTER → 2020-11-02 | Outpatient (CLI) | payer OTHER ==
--- NOTE | 2020-11-02 10:54 | US ---
EXAMINATION TYPE: Transabdominal DATE OF EXAM: 11/02/2020 10:19 AM COMPARISON: NONE CLINICAL HISTORY: O46.91 Possible miscarriage. bleeding EXAM PERFORMED: Transabdominal (TA) EXAM MEASUREMENTS: GESTATIONAL AGE / DATING Physician Established: (8 weeks/0 days) EDC: 06/14/2021 Dates by LMP: (8 weeks/0 days) EDC: 06/14/2021 Dates by First Scan: No previous this is first scan Dates by Current Scan for: (7 weeks/4 days) EDC: 06/17/2021 MATERNAL ANATOMY Uterus: 9.3 x 4.5 x 7.1 cm Right Ovary: 3.6 x 1.4 x 2.8 cm Left Ovary: Obscured by bowel gas. Post CDS / Adnexa: wnl Presence of free fluid: no Presence of corpus luteal cyst: no Presence of subchorionic bleed: Appears to be complex area seen 1.6 x .8 x 2.1 cm GESTATION / SURVEY CRL: 1.26 cm (7 weeks/4 days) Yolk Sac (normal less than 6mm): 5mm Heart Rate: 167 bpm Rhythm: Normal IUP: Viable IUP Beta HcG (if available): Not available at this time Single live intrauterine gestation Is present as gestational sac, yolk sac, and pole are seen. No free fluid in pelvic cul-de-sac. Small adjacent implantation bleed or subchorionic hemorrhage supe rior to gestational sac suspected. It is fairly anechoic with internal echoes noted The right ovary is seen. Left ovary is not clearly identified. No suspicious extra ovarian adnexal ma sses. IMPRESSION: Single live intrauterine gestation, mean crown-rump length 1.3 cm corresponding to 7 week 4 day old fetus.
== END | disposition home or self-care (01) ==
LOC: RADUSWWP 09:45
PROVIDERS: ATTEND Obstetrics & Gynecology
DX: O46.91 Antepartum hemorrhage, unspecified, first trimester (principal); Z3A.01 Less than 8 weeks gestation of pregnancy
CPT/HCPCS: 76801

== ENCOUNTER 2020-11-26 05:50 | Emergency (ER) | payer OTHER ==
[2020-11-26 06:06] VITALS: TEMP 98
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
--- NOTE | 2020-11-26 07:32 | US ---
EXAMINATION TYPE: US OB limited DATE OF EXAM: 11/26/2020 COMPARISON: Ultrasound November 02, 2020 CLINICAL HISTORY: HR. Known with pain. EXAM PERFORMED: Transabdominal (TA) GESTATIONAL AGE / DATING Physician Established: (11 weeks/3 days) EDC: 06/14/2021 No growth performed on today?s study per ordering physician SURVEY HEART RATE: 174 bpm RHYTHM: Normal Heart rate only requested by Emergency room doctor. Limited OB ultrasound redemonstrates single live intrauterine gestation and confirms positive heart b eat and rate. IMPRESSION: As above.
[2020-11-26 07:46] VITALS: BP 131/85; PULSE 113; RESP 18
== END 2020-11-26 07:50 | disposition home or self-care (01) ==
LOC: EC 05:50
DX: O99.341 Other mental disorders complicating pregnancy, first trimester (principal); F41.0 Panic disorder [episodic paroxysmal anxiety]; F32.9 Major depressive disorder, single episode, unspecified; O26.891 Other specified pregnancy related conditions, first trimester; R10.9 Unspecified abdominal pain; Z3A.09 9 weeks gestation of pregnancy
CPT/HCPCS: 76815; 99284

== ENCOUNTER 2021-03-26 21:32 | Outpatient (CLI) | payer OTHER ==
[2021-03-26 22:45] LABS: Basophils # (A) 0.1 k/uL (0-0.2); Basophils % (A) 0 %; Eosinophils # (A) 0.2 k/uL (0-0.7); Eosinophils % (A) 1 %; HCT 36.2 % (34.0-46.0); HGB 12.6 gm/dL (11.4-16.0); Lymphocytes # (A) 2.2 k/uL (1.0-4.8); Lymphocytes % (A) 14 %; MCH 30.1 pg (25.0-35.0); MCHC 34.8 g/dL (31.0-37.0); MCV 86.3 fL (80.0-100.0); Mean Platelet Volume 8.8; Monocytes # (A) 0.7 k/uL (0-1.0); Monocytes % (A) 5 %; Neutrophils # (A) 12.2 k/uL (1.3-7.7); Neutrophils % (A) 79 %; Platelet Count 166 k/uL (150-450); RDW 13.1 % (11.5-15.5); WBC 15.5 k/uL (3.8-10.6)
[2021-03-26 22:49] LABS: Uric Acid 3.6 mg/dL (3.7-7.4)
[2021-03-26 23:10] VITALS: BP 123/78; PULSE 98; RESP 16; TEMP 97.3
--- NOTE | 2021-03-30 08:39 | P.MSEPDOC ---
Presenting Problems - Arrival Data Date of Arrival on Unit: 03/26/21 Time of Arrival on Unit: 21:32 Mode of Transport: Wheelchair - Complaint OB-Reason for Admission/Chief Complaint: Other Comment: Pt states coughing up blood today around 1600. States pulse was high at home. today around 110s. Medical History - Information : 6 Para: 1 Term: 1 : 0 Abortions: Spontaneous or Elective: 4 Number of Living Children: 1 - Gestational Age Gestational Age by NATHALY (wks/days): 28 Weeks and 4 Days - History Complications: Prior Review of Systems - Review of Systems Constitutional: No problems Breast: No problems ENT: No problems Cardiovascular: No problems Respiratory: No problems Gastrointestinal: No problems Genitourinary: No problems Musculoskeletal: No problems Neurological: No problems Skin: No problems Vital Signs - Temperature Temperature: 97.3 F Temperature Source: Temporal Artery Scan - Pulse Right Brachial Pulse Rate: 98 Pulse Assessment Method: Automatic Cuff - Respirations Respiratory Rate: 16 Oxygen Delivery Method: Room Air O2 Sat by Pulse Oximetry: 99 - Blood Pressure Right Arm Blood Pressure: 123/78 Blood Pressure Mean: 93 Blood Pressure Source: Automatic Cuff Medical Screen Scoring - Uterine Contractions Frequency From (mins): 0 Frequency To (mins): 0 - Assessment - Baby A Baseline FHR: 135 Heart Rate - NICHD Category: Category I (Normal) Physician Notification - Physician Notified Physician Notified Date: 03/26/21 Physician Notified Time: 21:40 Physician: Ellie Dolan Order Received: Yes - Notification Comment Comment: 2140 Orders for cbc, uric acid, ast/alt. 2254 Reported labs wnl and serial bps 131/73, 129/74. Orders to d/c pt home and call the office for follow up appointment next week. Maternal Triage Index - Maternal Triage Index Presenting for scheduled procedure w/no complaint: No - Stat/Priority 1 Stat Priority 1: No - Urgent/Priority 2 Urgent Priority 2: No - Prompt/Priority 3 Prompt Priority 3: Yes Criteria Met for Priority 3: bp 140/78 Dr. Dolan called at 2140 Disposition - Disposition OB Disposition: Discharge to home, Written follow up instructions reviewed Discharge Date: 03/26/21 Discharge Time: 22:58 I agree with the RN Medical Screening Exam: Yes Case reviewed; plan agreed upon as documented in EMR&OBIX.: Yes Comments: Patient was neither seen nor examined by me Diagnosis: RELATED CONDITIONS, UNSPECIFIED, SECOND TRIMESTER
== END 2021-03-26 22:58 | disposition home or self-care (01) ==
LOC: FBPOP 21:32
PROVIDERS: ATTEND Obstetrics & Gynecology
DX: O26.892 Other specified pregnancy related conditions, second trimester (principal); R04.2 Hemoptysis; Z3A.28 28 weeks gestation of pregnancy; Z88.3 Allergy status to other anti-infective agents; Z88.8 Allergy status to other drugs, medicaments and biological substances
CPT/HCPCS: 59025; 84450; 84460; 84550; 85025; 99215

== ENCOUNTER 2021-04-18 15:31 | Outpatient (CLI) | payer OTHER ==
[2021-04-18 16:09] VITALS: BP 129/81; PULSE 97; RESP 18; TEMP 97.7
--- NOTE | 2021-04-20 09:30 | P.MSEPDOC ---
Presenting Problems - Arrival Data Date of Arrival on Unit: 04/18/21 Time of Arrival on Unit: 15:31 Mode of Transport: Ambulatory - Complaint OB-Reason for Admission/Chief Complaint: PIH Medical History - Information : 5 Para: 1 Term: 1 Abortions: Spontaneous or Elective: 3 Number of Living Children: 1 - Gestational Age Gestational Age by NATHALY (wks/days): 31 Weeks and 6 Days Review of Systems - Review of Systems Constitutional: No problems Breast: No problems ENT: No problems Cardiovascular: No problems Respiratory: No problems Gastrointestinal: No problems Genitourinary: No problems Musculoskeletal: No problems Neurological: No problems Skin: No problems Vital Signs - Temperature Temperature: 97.7 F Temperature Source: Oral - Pulse Right Pulse Rate: 97 Pulse Assessment Method: Automatic Cuff - Respirations Respiratory Rate: 18 Oxygen Delivery Method: Room Air O2 Sat by Pulse Oximetry: 98 - Blood Pressure Right Arm Blood Pressure: 129/81 Blood Pressure Mean: 97 Blood Pressure Source: Automatic Cuff Medical Screen Scoring - Assessment - Baby A Baseline FHR: 130 Heart Rate - NICHD Category: Category I (Normal) NST: Reactive Physician Notification - Physician Notified Physician Notified Date: 04/18/21 Physician Notified Time: 16:00 Physician: Ellie Dolan Order Received: Yes (discharge home, pt to bring b/p cuff to next appt) Maternal Triage Index - Maternal Triage Index Presenting for scheduled procedure w/no complaint: No - Stat/Priority 1 Stat Priority 1: No - Urgent/Priority 2 Urgent Priority 2: No - Prompt/Priority 3 Prompt Priority 3: No - Non-Urgent/Priority 4 Non-Urgent Priority 4: Yes Criteria Met for Priority 4: Pt with off and on headache/nausea Disposition - Disposition OB Disposition: Physician follow up in office, Discharge to home Discharge Date: 04/18/21 Discharge Time: 16:15 I agree with the RN Medical Screening Exam: Yes Case reviewed; plan agreed upon as documented in EMR&OBIX.: Yes Comments: Patient was neither seen nor examined by me. Diagnosis: RELATED CONDITIONS, UNSPECIFIED, THIRD TRIMESTER
== END 2021-04-18 16:15 | disposition home or self-care (01) ==
LOC: FBPOP 15:31
PROVIDERS: ATTEND Obstetrics & Gynecology
DX: O13.3 Gestational [pregnancy-induced] hypertension without significant proteinuria, third trimester (principal); Z3A.31 31 weeks gestation of pregnancy; Z88.2 Allergy status to sulfonamides; Z88.8 Allergy status to other drugs, medicaments and biological substances
CPT/HCPCS: 59025

== ENCOUNTER 2021-04-24 14:48 | Observation (INO) | payer OTHER ==
[2021-04-24 15:40] LABS: Appearance,Urine Clear (Clear); Bilirubin,Urine Negative (Negative); Blood,Urine Negative (Negative); Color,Urine Light Yellow; Glucose,Urine (UA) Negative (Negative); Ketones,Urine Negative (Negative); Leukocyte Esterase,Urine Negative (Negative); Nitrite,Urine Negative (Negative); PH, Urine 6.5 (5.0-8.0); Protein,Urine Negative (Negative); Specific Gravity,Urine 1.006 (1.001-1.035); Urobilinogen,Urine <2.0 mg/dL (<2.0)
[2021-04-24 15:48] LABS: Creatinine,Urine Random 34.4 mg/dL
[2021-04-24 15:48] LABS: ALT 18 U/L (4-34); AST 25 U/L (14-36); African American GFR (CKD) >90 (>60 ml/min/1.73 sqM); Blood Urea Nitrogen 7 mg/dL (7-17); LDH 385 U/L (313-618); Non-African American GFR(CKD) >90 (>60 ml/min/1.73 sqM); Uric Acid 3.6 mg/dL (3.7-7.4)
[2021-04-24 15:49] LABS: Protein/Creatinine Ratio,Urine 0.647
[2021-04-24 16:03] LABS: INR 0.9 (<1.2); Partial Thromboplastin Time 22.2 sec (22.0-30.0); Prothrombin Time 9.5 sec (9.0-12.0)
[2021-04-24 16:04] LABS: Basophils % (A) 0 %; Eosinophils # (A) 0.1 k/uL (0-0.7); Eosinophils % (A) 1 %; HCT 35.5 % (34.0-46.0); HGB 12.4 gm/dL (11.4-16.0); Lymphocytes # (A) 1.7 k/uL (1.0-4.8); Lymphocytes % (A) 14 %; MCH 31.2 pg (25.0-35.0); MCHC 34.8 g/dL (31.0-37.0); MCV 89.6 fL (80.0-100.0); Mean Platelet Volume 9.7; Monocytes # (A) 0.6 k/uL (0-1.0); Monocytes % (A) 5 %; Neutrophils # (A) 9.4 k/uL (1.3-7.7); Neutrophils % (A) 78 %; Platelet Count 147 k/uL (150-450); RBC 3.97 m/uL (3.80-5.40); RDW 13.2 % (11.5-15.5); WBC 12.1 k/uL (3.8-10.6)
[2021-04-24] MEDS ORDERED: ACETAMINOPHEN TAB 500 MG TAB PO PRN (16:29)
[2021-04-24] MEDS: BETAMET ACET-BETAMETH SOD PHOS 6 MG/ML MDV IM SCH (16:57)
--- NOTE | 2021-04-24 21:17 | P.HPOB ---
History of Present Illness H&P Date: 04/24/21 Chief Complaint: IUP @ 32 5/7 weeks elevated bp This is a 30 yo at 32 5/7 weeks, EDC of 06/14/2021. EDC based on last menstrual period consistent with 7 week ultrasound. Patient was seen for routine visit with noted elevated blood pressures, 150/100. Patient had been seen in triage for similar complaints last week. Patient is under an extreme amount of stress as her is out of town and she is struggling with childcare. She is stated she just doesn't feel well. Patient doesn't have a history of preeclampsia, she states she was diagnosed with her last but went into spontaneous labor at 38 weeks. Patient underwent primary secondary to arrest of dilation with her first Patient was complaining of headache today as well, she has not taken Tylenol. Patient was sent to OB triage for labs and serial blood pressures. Blood pressures were noted to be normal 120-130's/80's. Patient does note good movement, denies contractions vaginal bleeding or loss of fluid. Review of Systems Constitutional: Reports fatigue, Denies chills, Denies fever Ears, nose, mouth and throat: Reports headache Cardiovascular: Denies leg edema Respiratory: Denies dyspnea Gastrointestinal: Denies constipation, Denies diarrhea, Denies nausea, Denies vomiting Genitourinary: Reports Past Medical History Past Medical History: No Reported History, Skin Disorder Additional Past Medical History / Comment(s): Eczema History of Any Multi-Drug Resistant Organisms: None Reported Past Surgical History: No Surgical Hx Reported Past Anesthesia/Blood Transfusion Reactions: No Reported Reaction Past Psychological History: Anxiety, Depression Smoking Status: Never smoker Past Alcohol Use History: None Reported Past Drug Use History: None Reported - Past Family History Father Family Medical History: No Reported History Medications and Allergies Home Medications Medication Instructions Recorded Confirmed Type Cholecalciferol (Vitamin D3) 50 mcg PO HS 03/14/20 04/18/21 History [Vitamin D3] Pnv No.95/Ferrous Fum/Folic AC 1 each PO HS 03/14/20 04/18/21 History [ Multivitamin Tablet] Allergies Allergy/AdvReac Type Severity Reaction Status Date / Time escitalopram [From Lexapro] Allergy Rapid Verified 04/24/21 14:49 Heart Rate sertraline [From Zoloft] Allergy Rapid Verified 04/24/21 14:49 Heart Rate Exam Osteopathic Statement: *. No significant issues noted on an osteopathic structural exam other than those noted in the History and Physical/Consult. Vital Signs Temp Pulse Resp BP Pulse Ox 04/24/21 14:49 97.7 F 90 16 141/84 99 Intake and Output 04/24/21 04/24/21 04/24/21 06:59 14:59 22:59 Other: Weight 81.647 kg 81.647 kg Targeted physical exam is performed in this date and hse manager a well-nourished well-developed female in no acute distress, breathing is nonlabored, heart has regular rate and rhythm, abdomen is gravid, heart tones returned be category 1. Results Result Diagrams: 04/24/21 15:26 04/24/21 15:26 Abnormal Lab Results - Last 24 Hours (Table) 04/24/21 04/24/21 04/24/21 Range/Units 15:04 15:26 15:26 WBC 12.1 H (3.8-10.6) k/uL Plt Count 147 L (150-450) k/uL Neutrophils # 9.4 H (1.3-7.7) k/uL Uric Acid 3.6 L (3.7-7.4) mg/dL U Random Total Protein 22 H (<12) mg/dL Assessment and Plan (1) 32 weeks gestation of Current Visit: Yes Status: Acute Code(s): Z3A.32 - 32 WEEKS GESTATION OF SNOMED Code(s): 4106100 (2) Gestational HTN Current Visit: Yes Status: Acute Code(s): O13.9 - GESTATIONAL HTN W/O S IGNIFICANT PROTEINURIA, UNSP TRIMESTER SNOMED Code(s): 08971852 Plan: 30-year-old at 38-5/7 weeks admitted for observation, 24-hour urine collection. Patient states she has noted blood pressures at home 150s over 100s. Patient was seen in the office with blood pressures 150s over 100. 0 blood pressures here in the office were noted to be normal. Patient is given betamethasone 1 today and will receive her second dose before 24 urine collection is completed. Preeclampsia precautions discussed. Prematurity and gestational age are discussed should she need to be transferred and delivered early. Multiple questions are answered. We'll await 24 urine collection.
[2021-04-25 06:18] LABS: HCT 35.2 % (34.0-46.0); HGB 12.3 gm/dL (11.4-16.0); MCH 31.2 pg (25.0-35.0); MCV 89.1 fL (80.0-100.0); Mean Platelet Volume 9.9; Platelet Count 138 k/uL (150-450); RBC 3.95 m/uL (3.80-5.40); RDW 13.2 % (11.5-15.5)
[2021-04-25 06:31] LABS: Uric Acid 3.6 mg/dL (3.7-7.4)
--- NOTE | 2021-04-25 08:43 | P.PN ---
Progress Note - Text Progress Note Date: 04/25/21 Patient is doing well this morning. She is tearful, as she is missing her [id number] son. Her is currently in route from [employer], her mom is flying in in addition. Patient is very stressed over the care of her [id number] son. Blood pressures have been good overnight. Patient denies signs or symptoms of preeclampsia. She states she is just tired. She notes good movement, she denies contractions. A) gestational hypertension, labs this morning with noted drop in platelets otherwise normal. Patient remains asymptomatic with normal blood pressures on bedrest gestational thrombocytopenia, platelets were noted to be 147 yesterday, decreased to 136 today, could be clouding preeclampsia diagnosis, will await 24 hour urine for further information. P) await 24-hour urine to be completed, patient will get her second dose of Celestone today.
[2021-04-25 12:41] VITALS: RESP 18
[2021-04-25 15:25] LABS: Total Volume 24 Hour,Urine 4000 mls (800-1800)
[2021-04-25 15:38] LABS: Total Protein 24 Hour,Urine 560 mg/24hr (42.0-225.0)
[2021-04-25 16:08] VITALS: BP 128/68; PULSE 92; TEMP 97.4
[2021-04-25] MEDS: BETAMET ACET-BETAMETH SOD PHOS 6 MG/ML MDV IM SCH (16:52)
[2021-04-25] MEDS ORDERED: PRENATAL VIT-IRON-FOLIC ACID 1 EACH CAP PO SCH (21:00)
== END 2021-04-25 17:00 | disposition home or self-care (01) ==
LOC: FBPOP 14:48 → 4FBP 16:37
PROVIDERS: ADMIT Obstetrics & Gynecology Obstetrics; ATTEND Obstetrics & Gynecology Obstetrics
DX: O13.4 Gestational [pregnancy-induced] hypertension without significant proteinuria, complicating childbirth (principal); Z3A.38 38 weeks gestation of pregnancy; O99.12 Other diseases of the blood and blood-forming organs and certain disorders involving the immune mechanism complicating childbirth; D69.59 Other secondary thrombocytopenia; R51.9 Headache, unspecified; O99.344 Other mental disorders complicating childbirth; F32.9 Major depressive disorder, single episode, unspecified; F41.9 Anxiety disorder, unspecified; L30.9 Dermatitis, unspecified; Z88.8 Allergy status to other drugs, medicaments and biological substances; Z87.59 Personal history of other complications of pregnancy, childbirth and the puerperium
CPT/HCPCS: 59025; 99215; 96372 ×2; 82570; 84156 ×2; 81050; 82565; 83615 ×2; 84450 ×2; 84460 ×2; 84520; 84550 ×2; 85025; 85027; 85384; 85610; 85730; 81003; G0378 ×2; J0702 ×2; G0463

== ENCOUNTER 2021-05-16 15:33 | Outpatient (CLI) | payer OTHER ==
[2021-05-16 15:54] LABS: Appearance,Urine Clear (Clear); Bacteria,Urine Rare /hpf; Bilirubin,Urine Negative (Negative); Blood,Urine Small (Negative); Color,Urine Light Yellow; Glucose,Urine (UA) Negative (Negative); Ketones,Urine Negative (Negative); Leukocyte Esterase,Urine Negative (Negative); Mucus,Urine Rare /hpf; Nitrite,Urine Negative (Negative); PH, Urine 6.5 (5.0-8.0); Protein,Urine Negative (Negative); RBC,Urine <1 /hpf (0-5); Specific Gravity,Urine 1.004 (1.001-1.035); Squamous Epithelial Cell,Urine 1 /hpf (0-4); Urobilinogen,Urine <2.0 mg/dL (<2.0); WBC,Urine 1 /hpf (0-5)
[2021-05-16 16:21] LABS: Basophils % (A) 0 %; Eosinophils # (A) 0.1 k/uL (0-0.7); Eosinophils % (A) 1 %; HCT 38.2 % (34.0-46.0); HGB 12.9 gm/dL (11.4-16.0); Lymphocytes # (A) 2.1 k/uL (1.0-4.8); Lymphocytes % (A) 17 %; MCH 30.6 pg (25.0-35.0); MCHC 33.9 g/dL (31.0-37.0); MCV 90.3 fL (80.0-100.0); Monocytes # (A) 0.6 k/uL (0-1.0); Monocytes % (A) 5 %; Neutrophils # (A) 9.7 k/uL (1.3-7.7); Neutrophils % (A) 76 %; Platelet Count 130 k/uL (150-450); Poikilocytosis Slight; RBC 4.22 m/uL (3.80-5.40); RDW 14.5 % (11.5-15.5); WBC 12.8 k/uL (3.8-10.6)
[2021-05-16 16:22] LABS: Creatinine,Urine Random 30.1 mg/dL; Creatinine,Urine Random 30.5 mg/dL; Protein/Creatinine Ratio,Urine 0.565
[2021-05-16 16:26] LABS: ALT 15 U/L (4-34); AST 23 U/L (14-36); African American GFR (CKD) >90 (>60 ml/min/1.73 sqM); Blood Urea Nitrogen 9 mg/dL (7-17); LDH 417 U/L (313-618); Non-African American GFR(CKD) >90 (>60 ml/min/1.73 sqM); Uric Acid 3.4 mg/dL (3.7-7.4)
[2021-05-16 16:29] LABS: INR 0.9 (<1.2); Partial Thromboplastin Time 22.4 sec (22.0-30.0); Prothrombin Time 9.5 sec (9.0-12.0)
[2021-05-16 17:48] VITALS: BP 138/85; PULSE 96; RESP 14; TEMP 97.3
== END 2021-05-16 17:32 | disposition home or self-care (01) ==
LOC: FBPOP 15:33
PROVIDERS: ATTEND Obstetrics & Gynecology
DX: O13.3 Gestational [pregnancy-induced] hypertension without significant proteinuria, third trimester (principal); Z3A.35 35 weeks gestation of pregnancy
CPT/HCPCS: 81001; 82565; 82570; 83615; 84156; 84450; 84460; 84520; 84550; 85025; 85610; 85730; 99215

== ENCOUNTER 2021-05-25 08:06 | Inpatient (IN) | payer OTHER ==
[2021-05-25] MEDS ORDERED: CITRIC ACID-SODIUM CITRATE 15 ML CUP PO ONE (08:34)
[2021-05-25 08:54] LABS: Basophils % (A) 0 %; Eosinophils # (A) 0.1 k/uL (0-0.7); Eosinophils % (A) 1 %; HGB 12.9 gm/dL (11.4-16.0); Lymphocytes # (A) 2.7 k/uL (1.0-4.8); Lymphocytes % (A) 23 %; MCH 30.8 pg (25.0-35.0); MCV 90.5 fL (80.0-100.0); Mean Platelet Volume 9.9; Monocytes # (A) 0.5 k/uL (0-1.0); Monocytes % (A) 5 %; Neutrophils # (A) 8.3 k/uL (1.3-7.7); Neutrophils % (A) 69 %; Platelet Count 179 k/uL (150-450); Poikilocytosis Slight; RDW 14.5 % (11.5-15.5)
[2021-05-25 09:08] LABS: INR 0.9 (<1.2); Partial Thromboplastin Time 22.9 sec (22.0-30.0); Prothrombin Time 9.4 sec (9.0-12.0)
[2021-05-25] MEDS: LACTATED RINGERS 1,000 ML IV SCH ×6 (09:12→19:31)
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
[2021-05-25] MEDS ORDERED: fentaNYL (PF) 50 MCG/ML 2 ML AMP ONE (10:11)
[2021-05-25] MEDS ORDERED: MORPHINE SULFATE (PF) 0.3 MG/0.3 ML SYR ONE (10:11)
[2021-05-25] MEDS ORDERED: KETOROLAC 15 MG/ML 1 ML VIAL ONE (10:11)
[2021-05-25] MEDS ORDERED: MIDAZOLAM 2 MG/2 ML VIAL ONE (10:11)
[2021-05-25] MEDS ORDERED: PHENYLEPHRINE-0.9% NACL SYG 1,000 MCG/10 ML SYRINGE ONE (10:11)
[2021-05-25] MEDS ORDERED: ONDANSETRON 4 MG/2 ML VIAL ONE (10:11)
[2021-05-25] MEDS ORDERED: OXYTOCIN 30 UNITS/500 ML NS BAG IV ONE (10:11)
[2021-05-25] MEDS ORDERED: NALOXONE 0.4 MG/ML 1 ML VIAL IV PRN (11:09)
[2021-05-25] MEDS ORDERED: diphenhydrAMINE 25 MG CAP PO PRN (11:09)
[2021-05-25] MEDS ORDERED: SIMETHICONE 80 MG CHEWABLE PO PRN (11:09)
[2021-05-25] MEDS ORDERED: ZOLPIDEM 5 MG TAB PO PRN (11:09)
[2021-05-25] MEDS ORDERED: LANOLIN CREAM 5 GM TUBE TOPICAL PRN (11:09)
[2021-05-25] MEDS ORDERED: ONDANSETRON 4 MG/2 ML VIAL IVP PRN (11:09)
[2021-05-25] MEDS ORDERED: diphenhydrAMINE 50 MG CAP PO PRN (11:09)
[2021-05-25] MEDS ORDERED: METOCLOPRAMIDE 5 MG/ML 2 ML VIAL IVP PRN (11:09)
[2021-05-25] MEDS ORDERED: HYDROmorphone 2 MG TAB PO PRN ×2 (11:09)
[2021-05-25] MEDS ORDERED: diphenhydrAMINE 50 MG/ML 1 ML VIAL IVP PRN ×2 (11:09)
[2021-05-25] MEDS ORDERED: OXYTOCIN 30 UNITS/500 ML NS 30 UNIT in SALINE 1 500ML.BAG IV SCH (11:15)
--- NOTE | 2021-05-25 11:17 | P.OP ---
Date of Procedure: 05/25/21 Preoperative Diagnosis: #1. 37 and one sevenths weeks intrauterine , -induced hypertension #2. Previous section, declining Postoperative Diagnosis: Same Procedure(s) Performed: #1. Repeat low transverse section Anesthesia: spinal Surgeon: Betito Farias Manager Account Management #1: Ciara Jeff Estimated Blood Loss (ml): 325 IV fluids (ml): 1,000 Urine output (ml): 300 Pathology: other (Placenta) Condition: stable Disposition: floor Operative Findings: The patient was taken to the operating room where she was delivered of a viable 6 lbs. 7 oz. baby girl with Apgars of 9 at 1 minute and 9 at 5 minutes delivered in the left occiput transverse position. There was a nuchal cord x2 which was reduced prior to delivering the infant's body. There was additionally noted to be a true knot in the cord. The placenta was delivered manually, intact, and grossly normal with a grossly normal three-vessel cord. The uterus, tubes, and ovaries were entirely normal to inspection otherwise. There was only a minimal amount of scarring present, primarily at the level of the linea alba between the rectus muscles. Description of Procedure: The patient was prepped and draped in usual fashion after spinal anesthesia was administered by the anesthesiologist. A Pfannenstiel incision was made through pre-existing scar and extended into the abdominal cavity without difficulty. The bladder peritoneum was elevated, incised, and reflected distally. A 2 cm incision was made in the transverse plane of the lower uterine segment to enter the uterus at which time clear fluid was noted. The incision was extended in both directions using the bandage scissors. The head was delivered up and through the incision where the nose and mouth were thoroughly suctioned. The double nuchal cord was reduced and the remainder of the delivered onto the field where the cord was doubly clamped, cut, and the infant passed for resuscitative measures with weight and Apgars as noted above. A segment of cord was doubly clamped, cut, and set aside should cord gases become necessary. There was noted to be a true knot in the segment of cord. The placenta was delivered manually and intact as noted above. The uterus was exteriorized and the interior cavity of the uterus swept of any remaining placental or membranous fragments. The margins of the incision were grasped with Whitting[place] clamps and the uterine incision closed in 2 layers. The first layer was a running locking stitch of 0 chromic catgut followed by a running imbricating layer of 0 chromic catgut, each from Alex to margin. Hemostasis appeared to be excellent. The posterior cul-de-sac was suctioned with a guard as well as a laparotomy sponge to clear any further clot. The uterus was replaced within the abdominal cavity and the gutters swept of any remaining blood, fluid, or clot. The incision was reexamined and one small point of bleeding the left central portion was made hemostatic with a single ckfqsy-fj-kofyo stitch of 0 chromic catgut. Hemostasis otherwise appeared to be excellent. The parietal peritoneum was loosely reapproximated in the layer of muscles examined and made hemostatic with the Bovie. The fascia was closed with 2 running stitches of 0 Vicryl proceeding from the lateral margins to the midpoint. The subcutaneous tissues were irrigated, made hemostatic with the Bovie, and not closed as they were very thin. The skin was closed with a running subcuticular stitch of 4-0 Vicryl from margin to margin followed by half-inch Steri-Strips placed with Mastisol. Estimated blood loss for the entire case was approximately 325 mL. There were no complications. All sponge, instrument, and needle counts were correct. The patient tolerated the procedure well and proceeded to the recovery room in stable condition. Both mother and are resting comfortably in recovery.
[2021-05-25 14:04] LABS: ALT 21 U/L (4-34); AST 31 U/L (14-36); African American GFR (CKD) >90 (>60 ml/min/1.73 sqM); Blood Urea Nitrogen 7 mg/dL (7-17); LDH 532 U/L (313-618); Non-African American GFR(CKD) >90 (>60 ml/min/1.73 sqM); Uric Acid 3.9 mg/dL (3.7-7.4)
[2021-05-25] MEDS: ACETAMINOPHEN TAB 500 MG TAB PO SCH ×2 (16:16→23:02)
[2021-05-25] MEDS: KETOROLAC 15 MG/ML 1 ML VIAL IVP SCH (18:07)
[2021-05-25] MEDS: IBUPROFEN 600 MG TAB PO SCH (18:08)
[2021-05-25] MEDS: SENNOSIDES-DOCUSATE SODIUM 1 EACH TAB PO SCH (23:02)
[2021-05-26] MEDS: IBUPROFEN 600 MG TAB PO SCH ×4 (00:42→21:54)
[2021-05-26] MEDS: KETOROLAC 15 MG/ML 1 ML VIAL IVP SCH ×4 (00:52→19:34)
[2021-05-26] MEDS: LACTATED RINGERS 1,000 ML IV SCH ×3 (04:01→21:54)
[2021-05-26] MEDS: ACETAMINOPHEN TAB 500 MG TAB PO SCH ×2 (04:02→21:53)
[2021-05-26 05:01] LABS: Basophils # (A) 0.1 k/uL (0-0.2); Basophils % (A) 0 %; Eosinophils % (A) 0 %; HCT 37.7 % (34.0-46.0); HGB 12.8 gm/dL (11.4-16.0); Lymphocytes # (A) 1.8 k/uL (1.0-4.8); Lymphocytes % (A) 14 %; MCHC 33.9 g/dL (31.0-37.0); MCV 91.4 fL (80.0-100.0); Mean Platelet Volume 10.3; Monocytes # (A) 0.6 k/uL (0-1.0); Monocytes % (A) 5 %; Neutrophils # (A) 10.6 k/uL (1.3-7.7); Neutrophils % (A) 80 %; Platelet Count 166 k/uL (150-450); Poikilocytosis Slight; RBC 4.12 m/uL (3.80-5.40); RDW 14.4 % (11.5-15.5); WBC 13.2 k/uL (3.8-10.6)
--- NOTE | 2021-05-26 11:37 | P.PNOBGPC ---
Subjective - Subjective Principal diagnosis: Postop day 1, repeat section Interval history: Patient is doing well postoperatively. She is ambulating and voiding without difficulty. She is tolerating a regular diet without nausea or vomiting. Her pain is well-controlled. Patient reports: Reports appetite normal, Reports voiding normally, Reports pain well controlled, Reports ambulating normally [place]: doing well Objective - Vital Signs Latest vital signs: Vital Signs Temp Pulse Resp BP Pulse Ox 05/26/21 08:00 98.4 F 87 16 135/83 97 05/26/21 04:00 98.4 F 81 15 112/73 98 05/26/21 00:00 98.0 F 67 15 132/75 100 05/25/21 20:00 97.9 F 63 15 125/76 05/25/21 16:00 97.8 F 83 16 131/76 97 05/25/21 13:08 95.3 F L 84 16 126/61 98 05/25/21 12:38 76 16 112/63 99 05/25/21 12:08 83 16 123/63 99 05/25/21 11:53 80 16 126/70 05/25/21 11:38 80 16 125/67 97 Intake and Output 05/25/21 05/26/21 05/26/21 22:59 06:59 14:59 Intake Total 1000 Output Total 900 Balance -900 1000 Intake: Oral 1000 Output: Urine 900 Uretheral ([place]) 600 Other: Voiding Method Toilet # Voids 2 3 1 - Exam Extremities: Present: normal, edema Abdomen: Present: normal appearance Incision: Present: suppurative, intact Uterus: Present: normal - Labs Labs: Abnormal Lab Results - Last 24 Hours (Table) 05/26/21 Range/Units 04:09 WBC 13.2 H (3.8-10.6) k/uL Neutrophils # 10.6 H (1.3-7.7) k/uL Assessment and Plan (1) 37 weeks gestation of Current Visit: Yes Status: Acute Code(s): Z3A.37 - 37 WEEKS GESTATION OF SNOMED Code(s): 34121348 (2) Previous section Current Visit: Yes Status: Acute Code(s): Z98.891 - HISTORY OF UTERINE SCAR FROM PREVIOUS SURGERY SNOMED Code(s): 783630422 (3) Status post section Current Visit: Yes Status: Acute Code(s): Z98.891 - HISTORY OF UTERINE SCAR FROM PREVIOUS SURGERY SNOMED Code(s): 888396596 (4) Gestational HTN Current Visit: No Status: Acute Code(s): O13.9 - GESTATIONAL HTN W/O SIGNIFICANT PROTEINURIA, UNSP TRIMESTER SNOMED Code(s): 25650044 Plan: Patient is doing well postoperatively. Continue routine postoperative care. We will encourage increased ambulation and anticipate discharge home tomorrow.
--- NOTE | 2021-05-26 13:02 | P.PN ---
Progress Note - Text Date: 05/26/2021 Time: 13:01 The patient is status post section Vital signs stable VAS: 0-10 Patient has no complaints of pain. The patient incurred some minimal itching yesterday, this itching is now subsiding. Pain meds to be managed by service.
[2021-05-26] MEDS: SENNOSIDES-DOCUSATE SODIUM 1 EACH TAB PO SCH ×2 (13:36→19:36)
[2021-05-27] MEDS: IBUPROFEN 600 MG TAB PO SCH ×2 (04:15→06:58)
[2021-05-27] MEDS: KETOROLAC 15 MG/ML 1 ML VIAL IVP SCH (04:16)
[2021-05-27] MEDS: ACETAMINOPHEN TAB 500 MG TAB PO SCH ×2 (04:16→07:56)
[2021-05-27] MEDS: LACTATED RINGERS 1,000 ML IV SCH (04:16)
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
[2021-05-27 10:34] VITALS: TEMP 98.3
[2021-05-27 10:35] VITALS: BP 135/88; PULSE 86; RESP 16
[2021-05-27] MEDS: SENNOSIDES-DOCUSATE SODIUM 1 EACH TAB PO SCH (10:35)
== END 2021-05-27 09:40 | disposition home or self-care (01) | DRG 788 ==
LOC: 4FBP 08:06
PROVIDERS: ADMIT Obstetrics & Gynecology; ATTEND Obstetrics & Gynecology
PROC: 10D00Z1 Extraction of Products of Conception, Low, Open Approach (ICD-10-PCS; principal; 2021-05-25 10:28)
DX: O13.4 Gestational [pregnancy-induced] hypertension without significant proteinuria, complicating childbirth (principal); O34.211 Maternal care for low transverse scar from previous cesarean delivery; O69.81X0 Labor and delivery complicated by cord around neck, without compression, not applicable or unspecified; O99.344 Other mental disorders complicating childbirth; F41.9 Anxiety disorder, unspecified; N85.8 Other specified noninflammatory disorders of uterus; L30.9 Dermatitis, unspecified; Z3A.37 37 weeks gestation of pregnancy; Z37.0 Single live birth; Z79.899 Other long term (current) drug therapy; Z88.8 Allergy status to other drugs, medicaments and biological substances
CPT/HCPCS: 82565; 83615; 84450; 84460; 84520; 84550; 85025; 85610; 85730; 86850; 86900; 86901

== ENCOUNTER 2023-09-16 17:19 | Emergency (ER) | payer OTHER ==
[2023-09-16 18:05] VITALS: RESP 18
--- NOTE | 2023-09-16 19:06 | XR ---
EXAMINATION TYPE: XR chest 2V DATE OF EXAM: 09/16/2023 6:38 PM CLINICAL INDICATION:Female, 32 years old with history of cough, chest wall pain; PHH COMPARISON: Chest radiographs from 09/16/2023 TECHNIQUE: XR chest 2V Frontal and lateral views of the chest. FINDINGS: Lungs/Pleura: There is no evidence of pleural effusion, focal consolidation, or pneumothorax. Pulmonary vascularity: Unremarkable. Heart/mediastinum: Cardiomediastinal silhouette is unremarkable. Musculoskeletal: No acute osseous pathology. Other findings: None IMPRESSION: No acute cardiopulmonary disease/process.
--- NOTE | 2023-09-16 19:18 | ED ---
General Adult HPI - General Source: patient Mode of arrival: ambulatory Limitations: no limitations <Lucille Wyatt - Last Filed: 09/16/23 19:17> <Mark Gastelum - Last Filed: 09/16/23 20:37> - General Chief complaint: Dizziness Stated complaint: Chest Pain, coughing up blood Time Seen by Provider: 09/16/23 19:17 - History of Present Illness Initial comments: 32-year-old female presenting with chief complaint of chest pain and dizziness. Patient states that she has had persistent symptoms for about a week or 2. Patient states that she also had a severe nosebleed today which stopped spontaneously. (Lucille Wyatt) - Related Data Home Medications Medication Instructions Recorded Confirmed Cholecalciferol (Vitamin D3) 50 mcg PO HS 03/14/20 05/25/21 [Vitamin D3] Pnv No.95/Ferrous Fum/Folic AC 1 each PO HS 03/14/20 05/25/21 [ Multivitamin Tablet] Labetalol [Trandate] 100 mg PO DAILY 05/16/21 05/25/21 Allergies Allergy/AdvReac Type Severity Reaction Status Date / Time escitalopram [From Lexapro] Allergy Rapid Verified 09/16/23 17:55 Heart Rate sertraline [From Zoloft] Allergy Rapid Verified 09/16/23 17:55 Heart Rate Review of Systems ROS Other: All systems not noted in ROS Statement are negative. <Lucille Wyatt - Last Filed: 09/16/23 19:17> ROS Other: All systems not noted in ROS Statement are negative. <Mark Gastelum - Last Filed: 09/16/23 20:37> ROS Statement: Those systems with pertinent positive or pertinent negative responses have been documented in the HPI. Past Medical History Past Medical History: No Reported History, Skin Disorder Additional Past Medical History / Comment(s): Eczema History of Any Multi-Drug Resistant Organisms: None Reported Past Surgical History: Section Past Anesthesia/Blood Transfusion Reactions: Postoperative Nausea & Vomiting (PONV) Past Psychological History: Anxiety, Depression Smoking Status: Never smoker Past Alcohol Use History: Occasional Past Drug Use History: None Reported - Past Family History Father Family Medical History: No Reported History <Lucille Wyatt - Last Filed: 09/16/23 19:17> General Exam Limitations: no limitations <Lucille Wyatt - Last Filed: 09/16/23 19:17> - General Exam Comments Initial Comments: Visual Physical Exam Vital signs reviewed General: Well-appearing, nontoxic, no acute distress. Head: Normocephalic, atraumatic Eyes: PERRLA, EOMI ENT: Airway patent Chest: Nonlabored breathing Skin: No visual rash, normal skin tone Neuro: Alert and oriented 3 Musculoskeletal: No gross abnormalities (Lucille Wyatt) Course Vital Signs 09/16/23 17:52 Temperature 99.1 F Pulse Rate 82 Respiratory 18 Rate Blood Pressure 165/92 O2 Sat by Pulse 99 Oximetry EKG Findings - EKG Comments: EKG Findings:: EKG is sinus 73 OR 132 QRS 13 QTc 402 - EKG Results: EKG: interpreted by ERMD <Mark Gastelum - Last Filed: 09/16/23 20:37> Medical Decision Making - Lab Data Result diagrams: 09/16/23 19:47 09/16/23 19:47 <Mark Gastelum - Last Filed: 09/16/23 20:37> - Lab Data Lab Results 09/16/23 09/16/23 09/16/23 Range/Units 19:47 19:47 19:47 WBC 7.2 (3.8-10.6) k/uL RBC 5.02 (3.80-5.40) m/uL Hgb 15.2 (11.4-16.0) gm/dL Hct 44.1 (34.0-46.0) % MCV 87.8 (80.0-100.0) fL MCH 30.3 (25.0-35.0) pg MCHC 34.5 (31.0-37.0) g/dL RDW 12.5 (11.5-15.5) % Plt Count 239 (150-450) k/uL MPV 9.1 Neutrophils % 49 % Lymphocytes % 39 % Monocytes % 4 % Eosinophils % 4 % Basophils % 1 % Neutrophils # 3.6 (1.3-7.7) k/uL Lymphocytes # 2.8 (1.0-4.8) k/uL Monocytes # 0.3 (0-1.0) k/uL Eosinophils # 0.3 (0-0.7) k/uL Basophils # 0.1 (0-0.2) k/uL D-Dimer (<0.60) mg/L FEU Sodium 138 (137-145) mmol/L Potassium 3.9 (3.5-5.1) mmol/L Chloride 102 (98-107) mmol/L Carbon Dioxide 23 (22-30) mmol/L Anion Gap 13 mmol/L BUN 12 (7-17) mg/dL Creatinine 0.58 (0.52-1.04) mg/dL Est GFR (CKD-EPI)AfAm >90 (>60 ml/min/1.73 sqM) Est GFR (CKD-EPI)NonAf >90 (>60 ml/min/1.73 sqM) Glucose 95 (74-99) mg/dL Calcium 9.9 (8.4-10.2) mg/dL Total Bilirubin 0.4 (0.2-1.3) mg/dL AST 25 (14-36) U/L ALT 20 (4-34) U/L Alkaline Phosphatase 67 (38-126) U/L Troponin I (0.000-0.034) ng/mL Total Protein 9.1 H (6.3-8.2) g/dL Albumin 5.3 H (3.5-5.0) g/dL Urine Color Colorless Urine Appearance Cloudy H (Clear) Urine pH 7.0 (5.0-8.0) Ur Specific [place] 1.011 (1.001-1.035) Urine Protein Negative (Negative) Urine Glucose (UA) Negative (Negative) Urine Ketones Negative (Negative) Urine Blood Small H (Negative) Urine Nitrite Negative (Negative) Urine Bilirubin Negative (Negative) Urine Urobilinogen <2.0 (<2.0) mg/dL Ur Leukocyte Esterase Negative (Negative) Urine RBC 1 (0-5) /hpf Urine WBC 1 (0-5) /hpf Ur Squamous Epith Cells 2 (0-4) /hpf Urine Bacteria Rare H (None) /hpf Urine HCG, Qual (Not Detectd) 09/16/23 09/16/23 09/16/23 Range/Units 19:47 19:47 19:47 WBC (3.8-10.6) k/uL RBC (3.80-5.40) m/uL Hgb (11.4-16.0) gm/dL Hct (34.0-46.0) % MCV (80.0-100.0) fL MCH (25.0-35.0) pg MCHC (31.0-37.0) g/dL RDW (11.5-15.5) % Plt Count (150-450) k/uL MPV Neutrophils % % Lymphocytes % % Monocytes % % Eosinophils % % Basophils % % Neutrophils # (1.3-7.7) k/uL Lymphocytes # (1.0-4.8) k/uL Monocytes # (0-1.0) k/uL Eosinophils # (0-0.7) k/uL Basophils # (0-0.2) k/uL D-Dimer 0.27 (<0.60) mg/L FEU Sodium (137-145) mmol/L Potassium (3.5-5.1) mmol/L Chloride (98-107) mmol/L Carbon Dioxide (22-30) mmol/L Anion Gap mmol/L BUN (7-17) mg/dL Creatinine (0.52-1.04) mg/dL Est GFR (CKD-EPI)AfAm (>60 ml/min/1.73 sqM) Est GFR (CKD-EPI)NonAf (>60 ml/min/1.73 sqM) Glucose (74-99) mg/dL Calcium (8.4-10.2) mg/dL Total Bilirubin (0.2-1.3) mg/dL AST (14-36) U/L ALT (4-34) U/L Alkaline Phosphatase (38-126) U/L Troponin I <0.012 (0.000-0.034) ng/mL Total Protein (6.3-8.2) g/dL Albumin (3.5-5.0) g/dL Urine Color Urine Appearance (Clear) Urine pH (5.0-8.0) Ur Specific [place] (1.001-1.035) Urine Protein (Negative) Urine Glucose (UA) (Negative) Urine Ketones (Negative) Urine Blood (Negative) Urine Nitrite (Negative) Urine Bilirubin (Negative) Urine Urobilinogen (<2.0) mg/dL Ur Leukocyte Esterase (Negative) Urine RBC (0-5) /hpf Urine WBC (0-5) /hpf Ur Squamous Epith Cells (0-4) /hpf Urine Bacteria (None) /hpf Urine HCG, Qual Not Detected (Not Detectd) Disposition <Lucille Wyatt - Last Filed: 09/16/23 19:17> Is patient prescribed a controlled substance at d/c from ED?: No Time of Disposition: 20:30 <Mark Gastelum - Last Filed: 09/16/23 20:37> Clinical Impression: Chest pain Disposition: HOME SELF-CARE Condition: Good Instructions (If sedation given, give patient instructions): Chest Pain (ED) Referrals: Nonstaff,Physician [Primary Care Provider] - 1-2 days
[2023-09-16 20:11] LABS: Basophils # (A) 0.1 k/uL (0-0.2); Basophils % (A) 1 %; Eosinophils # (A) 0.3 k/uL (0-0.7); Eosinophils % (A) 4 %; HCT 44.1 % (34.0-46.0); HGB 15.2 gm/dL (11.4-16.0); Lymphocytes # (A) 2.8 k/uL (1.0-4.8); Lymphocytes % (A) 39 %; MCH 30.3 pg (25.0-35.0); MCHC 34.5 g/dL (31.0-37.0); MCV 87.8 fL (80.0-100.0); Mean Platelet Volume 9.1; Monocytes # (A) 0.3 k/uL (0-1.0); Monocytes % (A) 4 %; Neutrophils # (A) 3.6 k/uL (1.3-7.7); Neutrophils % (A) 49 %; Platelet Count 239 k/uL (150-450); RBC 5.02 m/uL (3.80-5.40); RDW 12.5 % (11.5-15.5); WBC 7.2 k/uL (3.8-10.6)
[2023-09-16 20:12] LABS: Appearance,Urine Cloudy (Clear); Bacteria,Urine Rare /hpf; Bilirubin,Urine Negative (Negative); Blood,Urine Small (Negative); Color,Urine Colorless; Glucose,Urine (UA) Negative (Negative); Ketones,Urine Negative (Negative); Leukocyte Esterase,Urine Negative (Negative); Nitrite,Urine Negative (Negative); Protein,Urine Negative (Negative); RBC,Urine 1 /hpf (0-5); Specific Gravity,Urine 1.011 (1.001-1.035); Squamous Epithelial Cell,Urine 2 /hpf (0-4); Urobilinogen,Urine <2.0 mg/dL (<2.0); WBC,Urine 1 /hpf (0-5)
[2023-09-16 20:34] LABS: ALT 20 U/L (4-34); AST 25 U/L (14-36); African American GFR (CKD) >90 (>60 ml/min/1.73 sqM); Albumin 5.3 g/dL (3.5-5.0); Alkaline Phosphatase 67 U/L (38-126); Anion Gap 13 mmol/L; Blood Urea Nitrogen 12 mg/dL (7-17); Calcium 9.9 mg/dL (8.4-10.2); Carbon Dioxide 23 mmol/L (22-30); Chloride 102 mmol/L (98-107); Glucose 95 mg/dL (74-99); Non-African American GFR(CKD) >90 (>60 ml/min/1.73 sqM); Potassium 3.9 mmol/L (3.5-5.1); Sodium 138 mmol/L (137-145); Total Bilirubin 0.4 mg/dL (0.2-1.3); Total Protein 9.1 g/dL (6.3-8.2)
[2023-09-16 21:22] VITALS: BP 137/98; PULSE 69; TEMP 98.1
== END 2023-09-16 21:06 | disposition home or self-care (01) ==
LOC: EC 17:19
DX: R07.9 Chest pain, unspecified (principal); Z88.8 Allergy status to other drugs, medicaments and biological substances
CPT/HCPCS: 36415; 71046; 80053; 81001; 81025; 84484; 85025; 85379; 93005; 99284